=== PATIENT | female | born 1975 | race Caucasian/White ===

== ENCOUNTER 2019-05-03 08:34 | Emergency (ER) | payer OTHER ==
[~2019-05-03] VITALS: Ht 157.5 cm; Wt 60.0 kg
[~2019-05-03 08:34] MED LIST: CEPH-443 PO; CLIN300C10 PO; DOXY100T20 PO; HYDR-4011 PO; SULF1TAB31 PO; TRAM50TA2 PO
[2019-05-03 08:47] VITALS: BP 108/65; PULSE 67; RESP 18; Ht 157.5 cm; Wt 60.0 kg
== END 2019-05-03 09:29 | disposition home or self-care (01) ==
LOC: FTE 08:34
DX: L03.211 Cellulitis of face (principal)
CPT/HCPCS: 99283

== ENCOUNTER 2019-05-05 09:49 | Emergency (ER) | payer OTHER ==
[~2019-05-05] VITALS: Ht 152.4 cm; Wt 68.0 kg
[2019-05-05 10:14] VITALS: BP 128/74; PULSE 60; RESP 18; Ht 152.4 cm; Wt 68.0 kg
[2019-05-05] MEDS ORDERED: IOHEXOL 300MG/ML 150 ML BTL ONE (12:24)
[2019-05-05] MEDS ORDERED: SOD CHLORIDE 0.9% 100 ML ONE (12:24)
== END 2019-05-05 14:24 | disposition home or self-care (01) ==
LOC: FTE 09:49
DX: L03.211 Cellulitis of face (principal)
CPT/HCPCS: 36415; 70486; 80053; 81001; 81025; 83690; 85025; 99284; Q9967